=== PATIENT | female | born 1945 | race Caucasian/White ===

== ENCOUNTER 2018-01-28 00:54 | Inpatient (IN) | payer OTHER, MEDICARE ==
[~2018-01-28] VITALS: Ht 167.6 cm; Wt 80.2 kg
[2018-01-28 01:33] VITALS: BP 105/53; PULSE 61; RESP 15; TEMP 98.4; O2SAT 100
--- NOTE | 2018-01-28 01:39 | PD ---
HPI Chief Complaint: Psychiatric Symptoms Time Seen by Provider: 01:30 Travel History International Travel<30 days: No Contact w/Intl Traveler<30days: No Traveled to known affect area: No History of Present Illness HPI 72-year-old white female presents emergency department under a Hunt act by . She was seen at the emergency department in [place] and was medically cleared and sent here to be evaluated by the psychiatrist. The patient was given Geodon 20 mg IM. According to the Hunt act the patient has been acting bizarre. She has not been compliant with her antidepressants. According to the Hunt act she has had this behavior now for the last 2 weeks. Family members called police. The patient here denies any suicidal or homicidal ideation. She states that her unexpectedly 1 month ago. She does state that she has been taking her antidepressant on a daily basis. Patient does admit to feeling depressed. She does smoke marijuana on occasion. She denies any alcohol. PFSH Past Medical History Narrative Medical Anxiety, depression, left breast cancer with lumpectomy, insomnia, hysterectomy , questionable brain tumor Tetanus Vaccination: Unknown Past Surgical History Narrative Surgical Hysterectomy, left breast lumpectomy, Social History Alcohol Use: No Tobacco Use: Yes Substance Use: Yes (Marijuana) Allergies-Medications (Allergen,Severity, Reaction): Coded Allergies: No Known Allergies (Verified Allergy, Unknown, 01/28/18) Review of Systems General / Constitutional: No: Fever Eyes: No: Visual changes HENT: No: Headaches Cardiovascular: No: Chest Pain or Discomfort Respiratory: No: Shortness of Breath Gastrointestinal: No: Abdominal Pain Genitourinary: No: Dysuria Musculoskeletal: No: Pain Skin: No Rash Neurologic: No: Weakness Psychiatric: Positive: Anxiety, Depression, Mood Disorder, Substance Abuse, No : Suicidal Ideations, Disorder of Thought, Homicidal Ideation Endocrine: No: Polydipsia Hematologic/Lymphatic: No: Easy Bruising Physical Exam Narrative GENERAL: Well-nourished, well-developed patient. SKIN: Warm and dry. HEAD: Normocephalic and atraumatic. EYES: No scleral icterus. No injection or drainage. ENT: No nasal drainage noted. Mucous membranes pink. Airway patent. NECK: Supple, trachea midline. Moves head freely without obvious discomfort. CARDIOVASCULAR: Regular rate and rhythm without murmurs, gallops, or rubs. RESPIRATORY: Breath sounds equal bilaterally. No accessory muscle use. GASTROINTESTINAL: Abdomen soft, non-tender, nondistended. EXTREMITIES: No cyanosis or edema. BACK: Nontender without obvious deformity. No CVA tenderness. NEURO: Patient is alert and oriented. no sensorimotor deficits. Nonfocal. Normal speech. PSYCH: No delusions. No auditory or visual hallucinations. MDM Medical Decision Making Medical Screen Exam Complete: Yes Emergency Medical Condition: Yes Medical Record Reviewed: Yes Interpretation(s) Patient laboratory tests have been reviewed. Differential Diagnosis MDM: High Differential diagnoses: Schizophrenia, schizoaffective disorder, bipolar, anxiety, depression, adjustment reaction, mood disorder NOS, ODD, depressive disorder NOS, dementia, dementia with agitation, psychosis NOS, substance induced mood disorder, DMDD, Asperger syndrome, infection,electrolyte abnormality, malingering. Narrative Course Mental health screening discussed with the patient. Psychiatric screen ordered. I reviewed the patient's laboratory test. Patient is medically cleared. This is medical clearance for psychiatric admission Diagnosis Primary Impression: Medical clearance for psychiatric admission Condition: Stable [place] Jan 28, 2018 01:39
[2018-01-28] MEDS ORDERED: LEVO-86 PO (02:06)
[2018-01-28] MEDS ORDERED: ASPI-516 CHEW (02:06)
[2018-01-28] MEDS ORDERED: ZOLO100T PO (02:06)
[2018-01-28] MEDS ORDERED: LISI-590 PO (02:06)
[2018-01-28] MEDS ORDERED: LORA-474 PO (02:06)
[2018-01-28] MEDS ORDERED: LORazepam 2 MG/ML VIAL IM PRN ×2 (07:15)
[2018-01-28] MEDS ORDERED: LORazepam 0.5 MG TAB PO PRN (07:15)
[2018-01-28] MEDS ORDERED: ALUMINUM/MAGNESIUM/SIMETH 30 ML CUP PO PRN (07:15)
[2018-01-28] MEDS ORDERED: MAGNESIUM HYDROXIDE SUSP 30 ML CUP PO PRN (07:15)
[2018-01-28] MEDS ORDERED: LORazepam 1 MG TAB PO PRN (07:15)
[2018-01-28] MEDS ORDERED: ACETAMINOPHEN 325 MG TAB PO PRN (07:15)
[2018-01-28 07:39] VITALS: BP 176/72; PULSE 74; RESP 17; TEMP 98; O2SAT 99
[2018-01-28] MEDS: LEVOTHYROXINE SODIUM 25 MCG TAB PO SCH (08:00)
[2018-01-28] MEDS: LEVOTHYROXINE SODIUM 112 MCG TAB PO SCH (08:00)
[2018-01-28] MEDS: LISINOPRIL 10 MG TAB PO SCH (08:14)
[2018-01-28] MEDS: NICOTINE 21 MG/24 HR PATCH T-DERMAL SCH (08:14)
[2018-01-28] MEDS: ASPIRIN 81 MG CHEW TAB CHEW SCH (08:14)
[2018-01-28] MEDS: SERTRALINE HCL 100 MG TAB PO SCH (09:00)
[2018-01-28 15:26] VITALS: BP 135/61; PULSE 77; TEMP 98.3; O2SAT 99
[2018-01-29 05:19] VITALS: BP 178/77; PULSE 107; RESP 17; TEMP 98.3; O2SAT 98
[2018-01-29] MEDS: LEVOTHYROXINE SODIUM 25 MCG TAB PO SCH (06:00)
[2018-01-29] MEDS: LEVOTHYROXINE SODIUM 112 MCG TAB PO SCH (06:00)
[2018-01-29] MEDS: REMOVE OLD PATCH T-DERMAL SCH (09:00)
[2018-01-29] MEDS: SERTRALINE HCL 100 MG TAB PO SCH ×2 (09:00→09:54)
[2018-01-29] MEDS: NICOTINE 21 MG/24 HR PATCH T-DERMAL SCH (09:00)
[2018-01-29] MEDS: LISINOPRIL 10 MG TAB PO SCH (09:54)
[2018-01-29] MEDS: ASPIRIN 81 MG CHEW TAB CHEW SCH (09:54)
--- NOTE | 2018-01-29 16:35 | HHI.HP ---
Provisional Diagnosis Admission Date Jan 28, 2018 at 07:14 [place] I. Brief psychotic disorder F 23 Certification of Person's Competence To Provide Express and Informed Consent I have personally examined Deepika Kauffman , a person being served at [facility] on, Jan 29, 2018 16:26. Express and informed consent means consent voluntarily given in writing, by a competent person, after sufficient explanation and disclosure of the subject matter involved to enable the person to make a knowing and willful decision without any element of force, fraud, deceit, duress, or other form of constraint or coercion. This person is 18 years of age or older, is not now known to be incompetent to consent to treatment with a guardian advocate, and does not have a health care surrogate or proxy currently making medical treatment decisions. I have found this person to be one of the following: [] Competent to provide express and informed consent, as defined above, for voluntary admission to this facility and is competent to provide express and informed consent for treatment. He/she has the consistent capacity to make well reasoned, willful, and knowing decisions concerning his or her medical or mental health treatment. The person fully and consistently understands the purpose of the admission for examination/placement and is fully capable of personally exercising all rights assured [place] Incompetent to provide express and informed consent to voluntary admission, and this is incompetent to provide express and informed consent to treatment. The person must be transferred to involuntary status and a petition for a guardian advocate filed with the Circuit Court. []xxx Refusing to provide express and informed consent to voluntary admission but is competent to provide express and informed consent for treatment. The person must be discharged or transferred to involuntary status. Form shall be completed within 24 hours of a person's arrival at the receiving facility and filed in the clinical record of each person: 1. Admitted on a voluntary basis 2. Permitted to provide express and informed consent to his/her own treatment 3. Allowed to transfer from involuntary to voluntary status 4. Prior to permitting a person to consent to his or her own treatment after having been previously found incompetent to consent to treatment. History of Present Illness Capacity: Lacks Capacity (patient less capacity to sign for admission, patient has capacity to sign for medication) HPI Patient is a 72-year-old white female initially comes here under Hunt act by the seminal colleagues [employer] dated 01/27/19 at 2:45 PM that document reviewed stating very has been showing bizarre behaviors and has not been compliant with her medications. Family states she has been exhibiting such behaviors for approximately 2 weeks memory is evidently unable to determine whether examination is necessary. Patient initially seen at the [facility] urine toxicology positive for marijuana. CT of the head showed history of a craniotomy in cerebral atrophy. Patient behaviors such that she needed and ETO of Geodon 20 mg at that facility also. Patient medically cleared and then transferred here under the Hunt act. At the present time patient sitting in the day room nurse Key present throughout session. She is alert fairly well oriented angry irritable quite uncooperative white female. She is perseverative in her responses. She did acknowledge past psychiatric history but when questioned about hospitalizations she became angry and refused to answer. She did acknowledge her dying about a month ago but refused to answer anything else related to that or to her children over she is living. At this time patient does meet criteria for further psychiatric hospitalization under the Hunt act I'll do first opinion request second opinion. I feel she does have capacity to sign for medication. We will continue medication per the med reconciliation with the hospitalist consult will bus. We'll attempt to reach patient's family to get further information Review of Systems ROS Limitations: Altered Mental Status, Uncooperative Past Psych History Psychological trauma history Patient refuses to answer Violence risk - others (6 mos) Appears patient showing some bizarre behavior with her family possibly did. Care herself into her room Violence risk - self (6 mos) Moderate Substance Abuse History Drugs/Alcohol past 12 months Patient denies alcohol though frequent use of marijuana Past Family Social History Coded Allergies: No Known Allergies (Verified Allergy, Unknown, 01/28/18) Reported Medications Aspirin (Aspirin) 81 Mg Chew, 81 MG CHEW DAILY, TAB 0 Refills 01/28/18 Lisinopril (Zestril) 10 Mg Tab, 10 MG PO DAILY for Blood Pressure Management, # 30 TAB 0 Refills 01/28/18 Sertraline (Zoloft) 100 Mg Tab, 100 MG PO DAILY, #30 TAB 0 Refills 01/28/18 Levothyroxine (Synthroid) 137 Mcg Tab, 137 MCG PO DAILY for Thyroid, #30 TAB 0 Refills 01/28/18 Discontinued Reported Medications Lorazepam (Ativan) 1 Mg Tab, 1 MG PO BID Y for ANXIETY AND/OR AGITATION, TAB 0 Refills 01/28/18 Current Medications Medications (Trade) Dose Ordered Sig/Alphonso Route Start Time Stop Time Status Last Admin (Aspirin Chew) 81 mg DAILY CHEW 01/28/18 09:00 01/29/18 09:54 (Prinivil) 10 mg DAILY PO 01/28/18 09:00 01/29/18 09:54 (Ativan) 1 mg BID PRN PO 01/28/18 07:15 (Zoloft) 100 mg DAILY PO 01/28/18 09:00 01/29/18 09:00 (Synthroid) 112 mcg DAILY@0600 PO 01/28/18 08:00 01/28/18 08:00 (Ativan) 1 mg Q6H PRN PO 01/28/18 07:15 (Ativan Inj) 1 mg Q6H PRN IM 01/28/18 07:15 (Ativan) 0.5 mg Q12H PRN PO 01/28/18 07:15 (Ativan Inj) 0.5 mg Q12H PRN IM 01/28/18 07:15 (Tylenol) 650 mg Q4H PRN PO 01/28/18 07:15 (Milk Of Magnesia Liq) 30 ml DAILY PRN PO 01/28/18 07:15 (Mag-Al Plus Susp Liq) 30 ml Q6H PRN PO 01/28/18 07:15 (Habitrol 21 Mg Patch.24 Hr) 1 patch DAILY T-DERMAL 01/28/18 09:00 01/28/18 08:14 (Synthroid) 25 mcg DAILY@0600 PO 01/28/18 08:00 01/28/18 08:00 Miscellaneous Information 1 DAILY T-DERMAL 01/29/18 09:00 Family Psych History Patient states has seen a psychiatrist in the past refuses answer further psychiatric history questions Social History Patient recently Patient's Strengths (min. 2) Patient verbal irritable axis health care Physical Exam Patient medically cleared [facility] Vital Signs Vital Signs Date Time Temp Pulse Resp B/P (MAP) Pulse Ox O2 Delivery O2 Flow Rate FiO2 01/29/18 05:19 98.3 107 17 178/77 (110) 98 01/28/18 07:39 Room Air I/O 01/29/18 01/29/18 01/30/18 08:00 16:00 00:00 Intake Total 360 ml 360 ml Balance 360 ml 360 ml Mental Status Examination Appearance: Disheveled Consciousness: Alert Orientation: Person, Place, Date/Time Motor Activity: Normal gait Speech: Pressured, Rapid Language: Adequate Fund of Knowledge: Adequate Attention and Concentration: Other (fair) Memory: Impaired Mood: Angry, Oppositional, Irritable Affect: Other (increased range and intensity) Thought Process & Associations: Loose associations Thought Content: Bizarre thinking Hallucination Type: None (denies) Delusion Type: Bizarre Suicidal Ideation: No Suicidal Plan: No Suicidal Intention: No Homicidal Ideation: No Homicidal Plan: No Homicidal Intention: No Insight: Poor Judgment: Poor Assessment & Plan Problem List: (1) Brief psychotic disorder ICD Codes: F23 - Brief psychotic disorder Assessment & Plan Estimated LOS: 5-7 days at this time patient does meet criteria for involuntary psychiatric hospitalization I'll do first opinion request second opinion both feel she does have capacity at this time. Hospitalist consult will thus we'll order medication per the medication reconciliation. We'll attempt to reach patient's family to get further information Discharge Planning To be determined Jose Hidalgo MD Jan 29, 2018 16:35
[2018-01-29 18:21] VITALS: BP 157/70; PULSE 69; RESP 16; TEMP 97.6; O2SAT 100
[2018-01-30] MEDS: LEVOTHYROXINE SODIUM 112 MCG TAB PO SCH (05:52)
[2018-01-30] MEDS: LEVOTHYROXINE SODIUM 25 MCG TAB PO SCH (05:55)
[2018-01-30 06:13] VITALS: BP 168/77; PULSE 70; RESP 18; TEMP 98.5; O2SAT 96
[2018-01-30] MEDS: LISINOPRIL 10 MG TAB PO SCH (08:19)
[2018-01-30] MEDS: NICOTINE 21 MG/24 HR PATCH T-DERMAL SCH (08:36)
[2018-01-30] MEDS: SERTRALINE HCL 100 MG TAB PO SCH (08:36)
[2018-01-30] MEDS: ASPIRIN 81 MG CHEW TAB CHEW SCH (08:37)
[2018-01-30] MEDS: REMOVE OLD PATCH T-DERMAL SCH (08:38)
[2018-01-30] MEDS ORDERED: NICOTINE 21 MG/24 HR PATCH T-DERMAL SCH (09:00)
--- NOTE | 2018-01-30 12:55 | PD.PSY.CON ---
Provisional Diagnosis Admission Date Jan 28, 2018 at 07:14 [place] I. Brief psychotic disorder F 23 History of Present Illness Service Psychiatry Consult Requested By Psychiatry Reason for Consult Second opinion Primary Care Physician Unknown HPI Patient is a 72-year-old white female initially comes here under Hunt act by the seminal colleagues dated 01/27/19 at 2:45 PM that document reviewed stating very has been showing bizarre behaviors and has not been compliant with her medications. Family states she has been exhibiting such behaviors for approximately 2 weeks memory is evidently unable to determine whether examination is necessary. Patient initially seen at the [facility] urine toxicology positive for marijuana. CT of the head showed history of a craniotomy in cerebral atrophy. Patient behaviors such that she needed and ETO of Geodon 20 mg at that facility also. Patient medically cleared and then transferred here under the Hunt act. At the present time patient sitting in the day room nurse Key present throughout session. She is alert fairly well oriented angry irritable quite uncooperative white female. She is perseverative in her responses. She did acknowledge past psychiatric history but when questioned about hospitalizations she became angry and refused to answer. She did acknowledge her dying about a month ago but refused to answer anything else related to that or to her children over she is living. At this time patient does meet criteria for further psychiatric hospitalization under the Hunt act I'll do first opinion request second opinion. I feel she does have capacity to sign for medication. We will continue medication per the med reconciliation with the hospitalist consult will bus. We'll attempt to reach patient's family to get further information The patient is a 73 year-old woman, who lives in [place] with his son, , without no known previous psychiatric history, no previous psychiatric hospitalizations, no previous suicidal attempts, medical history hypertension, who was brought to the hospital on the Hunt at due to bizarre behavior and noncompliant with medications. Patient was consulted to me for second opinion. On the psychiatric evaluation today the patient seems to be very disorganized , with Vince loosening of associations, flight of ideas. Patient reports that she is here because her some months ago. Patient says that she would rather to be home right now. Patient doesn't seem to be insightful about circumstances that brought her to the hospital. She denies suicidal and homicidal ideation, she denies visual and auditory hallucinations. The patient is oriented 3. Past Family Social History Coded Allergies: No Known Allergies (Verified Allergy, Unknown, 01/28/18) Reported Medications Aspirin (Aspirin) 81 Mg Chew, 81 MG CHEW DAILY, TAB 0 Refills 01/28/18 Lisinopril (Zestril) 10 Mg Tab, 10 MG PO DAILY for Blood Pressure Management, # 30 TAB 0 Refills 01/28/18 Sertraline (Zoloft) 100 Mg Tab, 100 MG PO DAILY, #30 TAB 0 Refills 01/28/18 Levothyroxine (Synthroid) 137 Mcg Tab, 137 MCG PO DAILY for Thyroid, #30 TAB 0 Refills 01/28/18 Discontinued Reported Medications Lorazepam (Ativan) 1 Mg Tab, 1 MG PO BID Y for ANXIETY AND/OR AGITATION, TAB 0 Refills 01/28/18 Current Medications Medications (Trade) Dose Ordered Sig/Alphonso Route Start Time Stop Time Status Last Admin (Aspirin Chew) 81 mg DAILY CHEW 01/28/18 09:00 01/30/18 08:37 (Prinivil) 10 mg DAILY PO 01/28/18 09:00 01/30/18 08:19 (Ativan) 1 mg BID PRN PO 01/28/18 07:15 (Zoloft) 100 mg DAILY PO 01/28/18 09:00 01/30/18 08:36 (Synthroid) 112 mcg DAILY@0600 PO 01/28/18 08:00 01/30/18 05:52 (Ativan) 1 mg Q6H PRN PO 01/28/18 07:15 01/29/18 21:18 (Ativan Inj) 1 mg Q6H PRN IM 01/28/18 07:15 (Ativan) 0.5 mg Q12H PRN PO 01/28/18 07:15 (Ativan Inj) 0.5 mg Q12H PRN IM 01/28/18 07:15 (Tylenol) 650 mg Q4H PRN PO 01/28/18 07:15 (Milk Of Magnesia Liq) 30 ml DAILY PRN PO 01/28/18 07:15 (Mag-Al Plus Susp Liq) 30 ml Q6H PRN PO 01/28/18 07:15 (Habitrol 21 Mg Patch.24 Hr) 1 patch DAILY T-DERMAL 01/28/18 09:00 01/30/18 08:36 (Synthroid) 25 mcg DAILY@0600 PO 01/28/18 08:00 01/30/18 05:55 Miscellaneous Information 1 DAILY T-DERMAL 01/29/18 09:00 01/30/18 08:38 Patient's Strengths (min. 2) Patient verbal irritable axis health care Physical Exam Vital Signs Vital Signs Date Time Temp Pulse Resp B/P (MAP) Pulse Ox O2 Delivery O2 Flow Rate FiO2 01/30/18 06:13 98.5 70 18 168/77 (107) 96 01/28/18 07:39 Room Air Mental Status Examination Appearance: Disheveled Consciousness: Alert Orientation: Person, Place, Date/Time Motor Activity: Normal gait Speech: Pressured, Rapid Language: Adequate Fund of Knowledge: Adequate Attention and Concentration: Other (fair) Memory: Impaired Mood: Angry, Oppositional, Irritable Affect: Other (increased range and intensity) Thought Process & Associations: Loose associations Thought Content: Bizarre thinking Hallucination Type: None (denies) Delusion Type: Bizarre Suicidal Ideation: No Suicidal Plan: No Suicidal Intention: No Homicidal Ideation: No Homicidal Plan: No Homicidal Intention: No Insight: Poor Judgment: Poor Assessment & Plan Problem List: (1) Brief psychotic disorder ICD Codes: F23 - Brief psychotic disorder Assessment & Plan: I have seen and examined this patient, reviewed the documentation, I agree and concur with Dr. Hidalgo assessment and plan. Assessment & Plan Estimated LOS: Keven Grace MD Jan 30, 2018 12:55
[2018-01-30] MEDS ORDERED: risperiDONE 1 MG TAB PO SCH (13:00)
--- NOTE | 2018-01-30 13:04 | HHI.PYPN ---
Subjective Remarks Patient seen in day room with floor staff, discussed with nurse, chart reviewed. Somewhat paranoid and delusional, somewhat confused about the behaviors that led to this hospitalization. Minimizing them. Stating they should talk to her son Edinson who lives close by her in [place]. We will have counselor attempt to locate this gentleman. For now we'll add Respinol 1 mg twice a day to regimen Review of Systems Except as stated in HPI: all other systems reviewed are Neg Mental Status Examination Appearance: Disheveled Consciousness: Alert Orientation: Person, Place, Date/Time Motor Activity: Normal gait Speech: Pressured, Rapid Language: Adequate Fund of Knowledge: Adequate Attention and Concentration: Other (fair) Memory: Impaired Mood: Angry, Oppositional, Irritable Affect: Other (increased range and intensity) Thought Process & Associations: Loose associations Thought Content: Bizarre thinking Hallucination Type: None (denies) Delusion Type: Bizarre Suicidal Ideation: No Suicidal Plan: No Suicidal Intention: No Homicidal Ideation: No Homicidal Plan: No Homicidal Intention: No Insight: Poor Judgment: Poor Results Vitals/IOs Vital Signs Date Time Temp Pulse Resp B/P (MAP) Pulse Ox O2 Delivery O2 Flow Rate FiO2 01/30/18 06:13 98.5 70 18 168/77 (107) 96 01/28/18 07:39 Room Air Assessment & Plan Problem List: (1) Brief psychotic disorder ICD Codes: F23 - Brief psychotic disorder Assessment & Plan Estimated LOS: days patient continues psychotic delusional no insight. She medication adjustment of Justification for Cont. Inpt. At this time patient decompensated place to the lower level of care Discharge Planning Hopefully to return home to her family in Jose Crowley MD Jan 30, 2018 13:04
--- NOTE | 2018-01-30 14:19 | PD.CONS ---
HPI Service [facility] Hospitalists Consult Requested By Psychiatry Reason for Consult Medical management Primary Care Physician Unknown Diagnoses: History of Present Illness Ms. Kauffman is a 72-year-old female with a history of hypothyroidism, hypertension, depression who was admitted to the psychiatric unit under Hunt act due to bizarre behavior. She apparently was not taking her antidepressant medications. Hospitalist service was consulted for medical management. Patient was seen in the hallway. She refused to go to her room for this interview. The time of this interview, patient denies any chest pain, shortness of breath, fever or chills. She reports that she has some kind of kidney disease. She earlier refused to get blood work done. However after discussing with her the importance of blood work, she agrees to do blood work. Review of Systems Except as stated in HPI: all other systems reviewed are Neg Past Family Social History Allergies: Coded Allergies: No Known Allergies (Verified Allergy, Unknown, 01/28/18) Past Medical History Hypothyroidism, hypertension, depression Breast cancer, uterine cancer, brain tumor benign. Past Surgical History Left breast lumpectomy due to breast cancer, hysterectomy, brain tumor removal. Reported Medications Current Medications Medications (Trade) Dose Ordered Sig/Alphonso Route Start Time Stop Time Status Last Admin (Aspirin Chew) 81 mg DAILY CHEW 01/28/18 09:00 01/30/18 08:37 (Prinivil) 10 mg DAILY PO 01/28/18 09:00 01/30/18 08:19 (Ativan) 1 mg BID PRN PO 01/28/18 07:15 (Zoloft) 100 mg DAILY PO 01/28/18 09:00 01/30/18 08:36 (Synthroid) 112 mcg DAILY@0600 PO 01/28/18 08:00 01/30/18 05:52 (Ativan) 1 mg Q6H PRN PO 01/28/18 07:15 01/29/18 21:18 (Ativan Inj) 1 mg Q6H PRN IM 01/28/18 07:15 (Ativan) 0.5 mg Q12H PRN PO 01/28/18 07:15 (Ativan Inj) 0.5 mg Q12H PRN IM 01/28/18 07:15 (Tylenol) 650 mg Q4H PRN PO 01/28/18 07:15 (Milk Of Magnesia Liq) 30 ml DAILY PRN PO 01/28/18 07:15 (Mag-Al Plus Susp Liq) 30 ml Q6H PRN PO 01/28/18 07:15 (Habitrol 21 Mg Patch.24 Hr) 1 patch DAILY T-DERMAL 01/28/18 09:00 01/30/18 08:36 (Synthroid) 25 mcg DAILY@0600 PO 01/28/18 08:00 01/30/18 05:55 Miscellaneous Information 1 DAILY T-DERMAL 01/29/18 09:00 01/30/18 08:38 (risperDAL) 1 mg Q12HR PO 01/30/18 13:00 Future Hold Family History Mother had brain tumor. Father with heart disease, alcoholism. Social History Patient smokes about 1 pack a day. She does not want to quit smoking. She denies using alcohol or illicit drugs. Physical Exam Vital Signs Vital Signs Date Time Temp Pulse Resp B/P (MAP) Pulse Ox O2 Delivery O2 Flow Rate FiO2 01/30/18 06:13 98.5 70 18 168/77 (107) 96 01/29/18 18:21 97.6 69 16 157/70 (99) 100 Physical Exam GENERAL: This is a well-nourished, well-developed patient, in no apparent distress. SKIN: No rashes, ecchymoses or lesions. Warm and dry. HEAD: Atraumatic. Normocephalic. No temporal or scalp tenderness. EYES: Pupils equal round and reactive. No injection or drainage. ENT: Nose without bleeding, purulent drainage or septal hematoma. Airway patent. NECK: Trachea midline. No lymphadenopathy. Supple, nontender, no meningeal signs. CARDIOVASCULAR: Regular rate and rhythm without murmurs, gallops, or rubs. No JVD. RESPIRATORY: Clear to auscultation. Breath sounds equal bilaterally. No wheezes , rales, or rhonchi. GASTROINTESTINAL: Abdomen soft, non-tender, nondistended. No guarding. MUSCULOSKELETAL: Extremities without clubbing, cyanosis, or edema. NEUROLOGICAL: Awake and alert. Cranial nerves II through XII intact. No focal neurological deficits. Normal speech. Assessment and Plan Problem List: (1) Brief psychotic disorder ICD Code: F23 - Brief psychotic disorder (2) Hypothyroidism ICD Code: E03.9 - Hypothyroidism, unspecified (3) Hypertension ICD Code: I10 - Essential (primary) hypertension Assessment and Plan Ms. Kauffman is a pleasant 72-year-old female with a history of hypertension, hypothyroidism who was admitted under Hunt act due to bizarre behavior. Patient apparently was not taking her antidepressant medications. Hospitalist service was consulted for medical management. Patient earlier has refused to do blood work. However after talking to her, patient agrees to do blood work. -Brief psychotic disorder -Depression -Management per psychiatry. -Hypertension -Patient takes lisinopril 10 mg daily. She refused the medication yesterday. However today she took it. -We can continue lisinopril. However patient suggested that she chronic kidney disease. -Based on the labs, we may discontinue lisinopril and start calcium channel jeff. - Probable CKD per patient. -Will follow labs. If creatinine is elevated, we will d/c BRYAN inhibitor and start Calcium channel jeff. -Hypothyroidism -continue levothyroxine 137 mcg daily. -History of breast cancer -History of brain tumor benign -History of uterine cancer -No acute concerns. Outpatient follow-up. Later in the PM, labs were done. CKD with Creatinine 1.10. D/C lisinopril and start Amlodipine 5mg Qday. Titrate up and down as needed. Full code. Ambulation. Thank you for the consult. We will continue to follow this patient with you. Jade Honeycutt DO Jan 30, 2018 14:19
[2018-01-30] MEDS: risperiDONE 1 MG TAB PO SCH ×3 (15:00→21:13)
[2018-01-30 16:52] LABS: HEMOGLOBIN A1C 5.1 % (4.3-6.0)
[2018-01-30 16:54] LABS: BICARBONATE 26.5 MEQ/L (21.0-32.0); BLOOD UREA NITROGEN 23 MG/DL (7-18); CALCIUM 9.1 MG/DL (8.5-10.1); CHLORIDE 106 MEQ/L (98-107); CHOLESTEROL 198 MG/DL (120-200); GLOMERULAR FILTRATION RATE 49 ML/MIN (>89); GLUCOSE,RANDOM 105 MG/DL (74-106); SODIUM (NA) 139 MEQ/L (136-145); TRIGLYCERIDES 160 MG/DL (42-150)
[2018-01-30 16:56] LABS: CHOLESTEROL/ HDL RATIO 3.37 RATIO; HDL CHOLESTEROL 58.6 MG/DL (40.0-60.0); LDL CHOLESTEROL 107 MG/DL (0-99)
[2018-01-30 17:22] VITALS: BP 117/58; PULSE 66; RESP 18; TEMP 98.7; O2SAT 99
[2018-01-30] MEDS: LORazepam 1 MG TAB PO PRN (21:34)
[2018-01-31] MEDS: LEVOTHYROXINE SODIUM 25 MCG TAB PO SCH (05:40)
[2018-01-31] MEDS: LEVOTHYROXINE SODIUM 112 MCG TAB PO SCH (05:40)
[2018-01-31 05:49] VITALS: BP 149/56; PULSE 68; RESP 18; TEMP 97.8; O2SAT 99
[2018-01-31 06:00] VITALS: BP 149/65; PULSE 68; RESP 18; TEMP 97.8; O2SAT 99
[2018-01-31 08:25] VITALS: BP 181/76
[2018-01-31] MEDS: NICOTINE 21 MG/24 HR PATCH T-DERMAL SCH (08:26)
[2018-01-31] MEDS: SERTRALINE HCL 100 MG TAB PO SCH (08:29)
[2018-01-31] MEDS: ASPIRIN 81 MG CHEW TAB CHEW SCH (08:29)
[2018-01-31] MEDS: risperiDONE 1 MG TAB PO SCH ×2 (08:29→21:00)
[2018-01-31] MEDS: amLODIPine BESYLATE 5 MG TAB PO SCH (08:29)
[2018-01-31] MEDS: REMOVE OLD PATCH T-DERMAL SCH (08:31)
--- NOTE | 2018-01-31 12:07 | HHI.PYPN ---
Subjective Remarks Patient seen in day room with nurse Mary, patient calm cooperative we did discuss medications she really wants to remain on her Zoloft and Ativan, which is appropriate. We did discuss the need for medication to address her psychotic features. Patient is reluctantly willing to continue on at bedtime medicines. We will discontinue the scheduled Respinol. And start Respinol 2 mg at at bedtime Review of Systems Except as stated in HPI: all other systems reviewed are Neg Mental Status Examination Appearance: Disheveled Consciousness: Alert Orientation: Person, Place, Date/Time Motor Activity: Normal gait Speech: Pressured, Rapid Language: Adequate Fund of Knowledge: Adequate Attention and Concentration: Other (fair) Memory: Impaired Mood: Angry, Oppositional, Irritable Affect: Other (increased range and intensity) Thought Process & Associations: Loose associations Thought Content: Bizarre thinking Hallucination Type: None (denies) Delusion Type: Bizarre Suicidal Ideation: No Suicidal Plan: No Suicidal Intention: No Homicidal Ideation: No Homicidal Plan: No Homicidal Intention: No Insight: Poor Judgment: Poor Results Labs Test 01/30/18 16:22 Blood Urea Nitrogen 23 MG/DL Creatinine 1.10 MG/DL Random Glucose 105 MG/DL Calcium Level 9.1 MG/DL Sodium Level 139 MEQ/L Potassium Level 4.2 MEQ/L Chloride Level 106 MEQ/L Carbon Dioxide Level 26.5 MEQ/L Anion Gap 7 MEQ/L Estimat Glomerular Filtration Rate 49 ML/MIN Hemoglobin A1c 5.1 % Triglycerides Level 160 MG/DL Cholesterol Level 198 MG/DL LDL Cholesterol 107 MG/DL HDL Cholesterol 58.6 MG/DL Cholesterol/HDL Ratio 3.37 RATIO Vitals/IOs Vital Signs Date Time Temp Pulse Resp B/P (MAP) Pulse Ox O2 Delivery O2 Flow Rate FiO2 01/31/18 08:25 181/76 (111) 01/31/18 06:00 97.8 68 18 99 01/28/18 07:39 Room Air Intake and Output 01/31/18 01/31/18 02/01/18 08:00 16:00 00:00 Intake Total 240 ml Balance 240 ml Assessment & Plan Problem List: (1) Brief psychotic disorder ICD Codes: F23 - Brief psychotic disorder Assessment & Plan Estimated LOS: days patient psychosis is softening this and some paranoia vigilance and guardedness. We will to discuss and agreed upon the addition of Respinol 2 mg at bedtime. Patient denies suicidality denies voices or visions Justification for Cont. Inpt. At this time patient will decompensate of placed a lower level of care Discharge Planning Probable return home with family Jose Hidalgo MD Jan 31, 2018 12:06
[2018-01-31] MEDS ORDERED: cloNIDine HCL 0.1 MG TAB PO PRN (13:15)
--- NOTE | 2018-01-31 15:27 | PD.TTN ---
Patient Problems 1. Discharge planning 2. Medication compliance 3. Knowledge deficit 4. Lack of coping skills Progress Toward Goals Provider Present: Dr. Stoney Hidalgo Provider Input: 01/31/18 Still meets criteria to be here but will discuss voluntary stay today Psychiatric Counselors Present: Sienna Hernández LCSW Psych Therapist Input: 01/31/18 patient is still somewhat suspicious but is more open to make eye contact and out on the unit , she can be very intrusive and demanding - history of non compliance and not very open to take medications Group Spec/RT/OT/PRICE Present: DEE Potts Group Spec/RT/OT/PRICE Input: 01/31/18 refuses to attend groups Sienna Hernández LCSW Jan 31, 2018 15:27
--- NOTE | 2018-01-31 16:27 | HHI.PR ---
Subjective Remarks Follow-up on patient with hypertension, hypothyroidism, CKD. Patient seen and examined. Patient states she feels tired after a long day. She denies any acute medical complaints. Denies any fever or chills. She denies any chest pain or shortness of breath. No nausea, vomiting or abdominal pain. Discussed repeating her BMP in next day or two to re-evaluate kidney function and patient states "we'll see". Objective Vitals Vital Signs Date Time Temp Pulse Resp B/P (MAP) Pulse Ox O2 Delivery O2 Flow Rate FiO2 01/31/18 08:25 181/76 (111) 01/31/18 06:00 97.8 68 18 149/65 (93) 99 01/31/18 05:49 97.8 68 18 149/56 (87) 99 01/30/18 17:22 98.7 66 18 117/58 (77) 99 I/O 01/30/18 01/30/18 01/30/18 01/31/18 01/31/18 01/31/18 07:00 15:00 23:00 07:00 15:00 23:00 Intake Total 960 ml 1200 ml Balance 960 ml 1200 ml Intake Oral 960 ml 1200 ml # Voids 2 3 2 Result Diagram: 01/30/18 1622 Objective Remarks GENERAL: This is a well-nourished, well-developed elderly female patient, in no apparent distress. Awake and alert. Sitting in dayroom. SKIN: Warm and dry. HEAD: Atraumatic. Normocephalic. EYES: EOMI. No injection or drainage. ENT: Nose without bleeding or purulent drainage. Airway patent. MMM. NECK: Trachea midline. CARDIOVASCULAR: Regular rate and rhythm without murmurs, gallops, or rubs. No JVD. RESPIRATORY: Clear to auscultation. Breath sounds equal bilaterally. No wheezes , rales, or rhonchi. GASTROINTESTINAL: Abdomen soft, non-tender, nondistended. No guarding. MUSCULOSKELETAL: Extremities without clubbing or cyanosis. Trace bilateral LE edema. NEUROLOGICAL: Awake and alert. Cranial nerves II through XII grossly intact. No focal neurological deficits. Normal speech. Medications and IVs Current Medications Medications (Trade) Dose Ordered Sig/Alphonso Route Start Time Stop Time Status Last Admin (Aspirin Chew) 81 mg DAILY CHEW 01/28/18 09:00 01/31/18 08:29 (Ativan) 1 mg BID PRN PO 01/28/18 07:15 01/30/18 21:34 (Zoloft) 100 mg DAILY PO 01/28/18 09:00 01/31/18 08:29 (Synthroid) 112 mcg DAILY@0600 PO 01/28/18 08:00 01/31/18 05:40 (Ativan) 1 mg Q6H PRN PO 01/28/18 07:15 01/29/18 21:18 (Ativan Inj) 1 mg Q6H PRN IM 01/28/18 07:15 (Ativan) 0.5 mg Q12H PRN PO 01/28/18 07:15 (Ativan Inj) 0.5 mg Q12H PRN IM 01/28/18 07:15 (Tylenol) 650 mg Q4H PRN PO 01/28/18 07:15 (Milk Of Magnesia Liq) 30 ml DAILY PRN PO 01/28/18 07:15 (Mag-Al Plus Susp Liq) 30 ml Q6H PRN PO 01/28/18 07:15 (Habitrol 21 Mg Patch.24 Hr) 1 patch DAILY T-DERMAL 01/28/18 09:00 01/31/18 08:26 (Synthroid) 25 mcg DAILY@0600 PO 01/28/18 08:00 01/31/18 05:40 Miscellaneous Information 1 DAILY T-DERMAL 01/29/18 09:00 01/31/18 08:31 (Norvasc) 5 mg DAILY PO 01/31/18 09:00 01/31/18 08:29 (Lipitor) 20 mg HS PO 01/31/18 21:00 (risperDAL) 2 mg HS PO 01/31/18 21:00 (Catapres) 0.1 mg Q6H PRN PO 01/31/18 13:15 A/P Problem List: (1) Brief psychotic disorder ICD Code: F23 - Brief psychotic disorder (2) Hypothyroidism ICD Code: E03.9 - Hypothyroidism, unspecified (3) Hypertension ICD Code: I10 - Essential (primary) hypertension Assessment and Plan Ms. Kauffman is a pleasant 72-year-old female with a history of hypertension, hypothyroidism who was admitted under Hunt act due to bizarre behavior. Patient apparently was not taking her antidepressant medications. Hospitalist service was consulted for medical management. Patient earlier has refused to do blood work. However after talking to her, patient agrees to do blood work. -Brief psychotic disorder -Depression -Management per psychiatry. -Hypertension -Patient takes lisinopril 10 mg daily at home. Discontinued secondary to suspected CKD. -Started on Norvasc 5mg daily this morning. Continue. May need to titrate dose up depending on response. -Clonidine prn with parameters -continue to monitor BP and adjust treatment accordingly -Probable CKD per patient. -creatinine 1.10, GFR 49, unknown baseline. No previous labs in system -Avoid nephrotoxic agents -monitor renal indices as indicated -Hypothyroidism -TSH 25.500 -Suspect elevated TSH secondary to medication noncompliance. Will not adjust at this time. Recommend repeat TSH in 4-6 weeks with PCP as outpatient. -continue levothyroxine 137 mcg daily. -History of breast cancer -History of brain tumor benign -History of uterine cancer -No acute concerns. Outpatient follow-up. Magali Castle Jan 31, 2018 16:27
[2018-01-31 17:29] VITALS: BP 193/74; PULSE 79; RESP 18; TEMP 98.1; O2SAT 100
[2018-01-31 17:53] VITALS: BP 193/74
[2018-01-31] MEDS: LORazepam 1 MG TAB PO PRN (20:13)
[2018-01-31] MEDS: ATORVASTATIN 20 MG TAB PO SCH (21:00)
[2018-02-01 05:32] VITALS: BP 139/87; PULSE 93; RESP 18; TEMP 97.7; O2SAT 100
[2018-02-01] MEDS: LEVOTHYROXINE SODIUM 25 MCG TAB PO SCH (05:58)
[2018-02-01] MEDS: LEVOTHYROXINE SODIUM 112 MCG TAB PO SCH (05:58)
[2018-02-01] MEDS: LORazepam 1 MG TAB PO PRN ×2 (05:59→22:22)
[2018-02-01 07:05] LABS: BICARBONATE 25.4 MEQ/L (21.0-32.0); CALCIUM 9.7 MG/DL (8.5-10.1); CREATININE 1.15 MG/DL (0.50-1.00)
[2018-02-01] MEDS: SERTRALINE HCL 100 MG TAB PO SCH (08:57)
[2018-02-01] MEDS: amLODIPine BESYLATE 5 MG TAB PO SCH (08:57)
[2018-02-01] MEDS: ASPIRIN 81 MG CHEW TAB CHEW SCH (08:57)
[2018-02-01] MEDS: NICOTINE 21 MG/24 HR PATCH T-DERMAL SCH (09:00)
[2018-02-01] MEDS: REMOVE OLD PATCH T-DERMAL SCH (09:00)
[2018-02-01 09:08] VITALS: BP 139/87; PULSE 132; RESP 18; TEMP 97.7; O2SAT 100
--- NOTE | 2018-02-01 12:50 | HHI.PYPN ---
Subjective Remarks Patient seen in [facility] with nurse Pancho, chart review, patient showing mixed compliance with medication. Patient discussed with nurse. Explain purpose of Respinol being given at at bedtime. Patient seems to show some processing and understanding of it. The patient compliant with medication tonight makes a commitment to continuation of the medications no patient with mental health follow-up will consider discharge tomorrow Review of Systems Except as stated in HPI: all other systems reviewed are Neg Mental Status Examination Appearance: Disheveled Consciousness: Alert Orientation: Person, Place, Date/Time Motor Activity: Normal gait Speech: Pressured, Rapid Language: Adequate Fund of Knowledge: Adequate Attention and Concentration: Other (fair) Memory: Impaired Mood: Angry, Oppositional, Irritable Affect: Other (increased range and intensity) Thought Process & Associations: Loose associations Thought Content: Bizarre thinking Hallucination Type: None (denies) Delusion Type: Bizarre Suicidal Ideation: No Suicidal Plan: No Suicidal Intention: No Homicidal Ideation: No Homicidal Plan: No Homicidal Intention: No Insight: Poor Judgment: Poor Results Labs Test 02/01/18 05:55 Blood Urea Nitrogen 24 MG/DL Creatinine 1.15 MG/DL Random Glucose 121 MG/DL Calcium Level 9.7 MG/DL Sodium Level 138 MEQ/L Potassium Level 3.7 MEQ/L Chloride Level 104 MEQ/L Carbon Dioxide Level 25.4 MEQ/L Anion Gap 9 MEQ/L Estimat Glomerular Filtration Rate 46 ML/MIN Vitals/IOs Vital Signs Date Time Temp Pulse Resp B/P (MAP) Pulse Ox O2 Delivery O2 Flow Rate FiO2 02/01/18 09:08 97.7 132 18 139/87 (104) 100 01/28/18 07:39 Room Air Intake and Output 02/01/18 02/01/18 02/02/18 08:00 16:00 00:00 Intake Total 720 ml 360 ml Balance 720 ml 360 ml Assessment & Plan Problem List: (1) Brief psychotic disorder ICD Codes: F23 - Brief psychotic disorder Assessment & Plan Estimated LOS: days patient vigilance and paranoia have markedly decreased, she is more compliant and cooperative. Will observe compliance with medication over next 24 hours Justification for Cont. Inpt. At this time patient decompensated placed in a lower level of care Discharge Planning Return home Jose Hidalgo MD Feb 01, 2018 12:50
[2018-02-01 17:48] VITALS: BP 154/66; PULSE 71; RESP 16; TEMP 98.6; O2SAT 100
[2018-02-01] MEDS: ATORVASTATIN 20 MG TAB PO SCH (20:14)
[2018-02-01] MEDS: risperiDONE 1 MG TAB PO SCH (20:14)
[2018-02-02] MEDS: LEVOTHYROXINE SODIUM 25 MCG TAB PO SCH (06:23)
[2018-02-02] MEDS: LEVOTHYROXINE SODIUM 112 MCG TAB PO SCH (06:23)
[2018-02-02 07:15] VITALS: BP 156/76; PULSE 71; RESP 15; TEMP 98; O2SAT 98
[2018-02-02] MEDS: amLODIPine BESYLATE 5 MG TAB PO SCH (08:19)
[2018-02-02] MEDS: REMOVE OLD PATCH T-DERMAL SCH (08:20)
[2018-02-02] MEDS: NICOTINE 21 MG/24 HR PATCH T-DERMAL SCH (08:20)
[2018-02-02] MEDS: ASPIRIN 81 MG CHEW TAB CHEW SCH (08:20)
[2018-02-02] MEDS: SERTRALINE HCL 100 MG TAB PO SCH (08:20)
[2018-02-02] MEDS ORDERED: LORA-474 PO (11:30)
[2018-02-02] MEDS ORDERED: RISP2TAB37 PO (11:30)
[2018-02-02] MEDS ORDERED: AMLO5 PO (11:30)
[2018-02-02] MEDS ORDERED: ATOR20TA15 PO (11:30)
[2018-02-02] MEDS ORDERED: ZOLO100T PO (11:30)
[2018-02-02] MEDS ORDERED: LEVO25TA4 PO (11:30)
[2018-02-02] MEDS ORDERED: ASPI-516 CHEW (11:30)
--- NOTE | 2018-02-02 11:36 | HHI.DS ---
Psychiatry Discharge Summary Inpatient Psychiatric care?: Yes Advance Directive: No Reason Not Provided: Due to Patient Condition Mental Health AdvanceDirective: No Health Care Proxy: No Admission Admission Date Jan 28, 2018 at 07:14 Admission Diagnosis: (1) Brief psychotic disorder ICD Code: F23 - Brief psychotic disorder Brief History Patient is a 72-year-old white female initially comes here under Hunt act by the seminal colleagues dated 01/27/19 at 2:45 PM that document reviewed stating very has been showing bizarre behaviors and has not been compliant with her medications. Family states she has been exhibiting such behaviors for approximately 2 weeks memory is evidently unable to determine whether examination is necessary. Patient initially seen at the [facility] urine toxicology positive for marijuana. CT of the head showed history of a craniotomy in cerebral atrophy. Patient behaviors such that she needed and ETO of Geodon 20 mg at that facility also. Patient medically cleared and then transferred here under the Hunt act. At the present time patient sitting in the day room nurse Key present throughout session. She is alert fairly well oriented angry irritable quite uncooperative white female. She is perseverative in her responses. She did acknowledge past psychiatric history but when questioned about hospitalizations she became angry and refused to answer. She did acknowledge her dying about a month ago but refused to answer anything else related to that or to her children over she is living. At this time patient does meet criteria for further psychiatric hospitalization under the Hunt act I'll do first opinion request second opinion. I feel she does have capacity to sign for medication. We will continue medication per the med reconciliation with the hospitalist consult will bus. We'll attempt to reach patient's family to get further information The patient is a 73 year-old woman, who lives in [place] with his son, , without no known previous psychiatric history, no previous psychiatric hospitalizations, no previous suicidal attempts, medical history hypertension, who was brought to the hospital on the Hunt at due to bizarre behavior and noncompliant with medications. Patient was consulted to me for second opinion. On the psychiatric evaluation today the patient seems to be very disorganized , with Vince loosening of associations, flight of ideas. Patient reports that she is here because her some months ago. Patient says that she would rather to be home right now. Patient doesn't seem to be insightful about circumstances that brought her to the hospital. She denies suicidal and homicidal ideation, she denies visual and auditory hallucinations. The patient is oriented 3. Tobacco Use In Past 30 Days: No Tobacco Past 30 Days Alcohol Use: Never Hospital Course Patient hospital course was uneventful, she was no behavior problems, was cooperative with the staff. Socializing with other patients. She showed resistance to psychotropic medications. The is able to process this with her with her willingness then to take and bedtime dose of Respinol. Patient took medication last night. Today patient denies suicidality homicidality voices or visions. There is still a suspiciousness and vigilant. However feel at this time she has reached maximum benefit of this hospitalization. She still feels the need for small dose of Ativan at at bedtime since this is been her regimen for a number of years. She is also willing to take the Respinol at bedtime. Thus patient will be discharged today with 1 month supply a regular schedule medications though with only 10 Ativan and 10 Respinol. Patient to be referred to us by her mental health follow-up next week. Patient willing to do this but she'll be discharged today to her family Results Blood Pressure 156 / 76 Vital Signs Date Time Temp Pulse Resp B/P (MAP) Pulse Ox O2 Delivery O2 Flow Rate FiO2 02/02/18 07:15 98.0 71 15 156/76 (102) 98 Laboratory Tests Test 01/30/18 16:22 02/01/18 05:55 Blood Urea Nitrogen 23 MG/DL (7-18) 24 MG/DL (7-18) Creatinine 1.10 MG/DL (0.50-1.00) 1.15 MG/DL (0.50-1.00) Estimat Glomerular Filtration Rate 49 ML/MIN (>89) 46 ML/MIN (>89) Triglycerides Level 160 MG/DL (42-150) LDL Cholesterol 107 MG/DL (0-99) Thyroid Stimulating Hormone 3rd Gen 25.500 uIU/ML (0.358-3.740) Random Glucose 121 MG/DL (74-106) Laboratory Results Test 01/30/18 16:22 Cholesterol Level 198 MG/DL (120-200) HDL Cholesterol 58.6 MG/DL (40.0-60.0) Hemoglobin A1c 5.1 % (4.3-6.0) LDL Cholesterol 107 MG/DL (0-99) Triglycerides Level 160 MG/DL (42-150) Summary of Procedures None done Pending results at discharge: No Medications # of Antipsychotic meds at D/C: 1 Approp Antipsych med options 1 - Minimum of three failed multiple trials of monotherapy. 2 - Documented plan to taper to monotherapy due to previous use of multiple meds OR cross-taper in progress at D/C. 3 - Documentation of augmentation of Clozapine. 4 - Justification other than those listed in allowable values 1-3, document here : Discharge Discharge Date: Feb 02, 2018 Discharge Diagnosis: (1) Brief psychotic disorder Diagnosis: Principal ICD Code: F23 - Brief psychotic disorder Pt Condition on Discharge: Stable Discharge Disposition: Discharge Home Discharge Instructions Diet Instructions: As Tolerated, No Restrictions Activities you can perform: Regular-No Restrictions Scheduled Appointment: Discharge Time > 30 minutes Mental Status Examination Appearance: Disheveled Consciousness: Alert Orientation: Person, Place, Date/Time Motor Activity: Normal gait Speech: Pressured, Rapid Language: Adequate Fund of Knowledge: Adequate Attention and Concentration: Other (fair) Memory: Impaired Mood: Angry, Oppositional, Irritable Affect: Other (increased range and intensity) Thought Process & Associations: Loose associations Thought Content: Bizarre thinking Hallucination Type: None (denies) Delusion Type: Bizarre Suicidal Ideation: No Suicidal Plan: No Suicidal Intention: No Homicidal Ideation: No Homicidal Plan: No Homicidal Intention: No Insight: Poor Judgment: Poor Discharge/Advance Care Plan Health Problems: (1) Brief psychotic disorder Goals to promote your health * To prevent worsening of your condition and complications * To maintain your health at the optimal level Directions to meet your goals Take your medications as prescribed Follow your dietary instruction Follow activity as directed Keep your appointments as scheduled Take your immunizations and boosters as scheduled If your symptoms worsen call your PCP, if no PCP go to Urgent Care Center or Emergency Room For 19/06 questions related to your inpatient stay or results of tests pending at discharge, please contact Dr. Jose Hidalgo at Smoking is Dangerous to Your Health. Avoid second hand smoking Jose Hidalgo MD Feb 02, 2018 11:36
--- NOTE | 2018-02-02 11:38 | HHI.PR ---
Subjective Remarks Follow-up on patient with hypertension, hypothyroidism, CKD. Patient seen and examined. Patient reports she is doing well. She denies any new medical complaints. Discussed with nursing staff, no acute issues noted. VSS. Afebrile. Objective Vitals Vital Signs Date Time Temp Pulse Resp B/P (MAP) Pulse Ox O2 Delivery O2 Flow Rate FiO2 02/02/18 07:15 98.0 71 15 156/76 (102) 98 02/01/18 17:48 98.6 71 16 154/66 (95) 100 I/O 02/01/18 02/01/18 02/01/18 02/02/18 02/02/18 02/02/18 07:00 15:00 23:00 07:00 15:00 23:00 Intake Total 720 ml 1320 ml 960 ml Balance 720 ml 1320 ml 960 ml Intake Oral 720 ml 1320 ml 960 ml # Voids 2 1 3 Result Diagram: 02/01/18 0555 Objective Remarks GENERAL: This is a well-nourished, well-developed elderly female patient, in no apparent distress. Awake and alert. Ambulating in the dayroom. SKIN: Warm and dry. HEAD: Atraumatic. Normocephalic. EYES: EOMI. No injection or drainage. ENT: Nose without bleeding or purulent drainage. Airway patent. MMM. NECK: Trachea midline. CARDIOVASCULAR: Regular rate and rhythm without murmurs, gallops, or rubs. No JVD. RESPIRATORY: Clear to auscultation. Breath sounds equal bilaterally. No wheezes , rales, or rhonchi. GASTROINTESTINAL: Abdomen soft, non-tender, nondistended. No guarding. MUSCULOSKELETAL: Extremities without clubbing or cyanosis. Trace bilateral LE edema. NEUROLOGICAL: Awake and alert. Cranial nerves II through XII grossly intact. No focal neurological deficits. Normal speech. Medications and IVs Current Medications Medications (Trade) Dose Ordered Sig/Alphonso Route Start Time Stop Time Status Last Admin (Aspirin Chew) 81 mg DAILY CHEW 01/28/18 09:00 02/02/18 08:20 (Ativan) 1 mg BID PRN PO 01/28/18 07:15 02/01/18 22:22 (Zoloft) 100 mg DAILY PO 01/28/18 09:00 02/02/18 08:20 (Synthroid) 112 mcg DAILY@0600 PO 01/28/18 08:00 02/02/18 06:23 (Ativan) 1 mg Q6H PRN PO 01/28/18 07:15 01/29/18 21:18 (Ativan Inj) 1 mg Q6H PRN IM 01/28/18 07:15 (Ativan) 0.5 mg Q12H PRN PO 01/28/18 07:15 (Ativan Inj) 0.5 mg Q12H PRN IM 01/28/18 07:15 (Tylenol) 650 mg Q4H PRN PO 01/28/18 07:15 02/01/18 22:22 (Milk Of Magnesia Liq) 30 ml DAILY PRN PO 01/28/18 07:15 (Mag-Al Plus Susp Liq) 30 ml Q6H PRN PO 01/28/18 07:15 (Habitrol 21 Mg Patch.24 Hr) 1 patch DAILY T-DERMAL 01/28/18 09:00 01/31/18 08:26 (Synthroid) 25 mcg DAILY@0600 PO 01/28/18 08:00 02/02/18 06:23 Miscellaneous Information 1 DAILY T-DERMAL 01/29/18 09:00 01/31/18 08:31 (Lipitor) 20 mg HS PO 01/31/18 21:00 02/01/18 20:14 (risperDAL) 2 mg HS PO 01/31/18 21:00 02/01/18 20:14 (Catapres) 0.1 mg Q6H PRN PO 01/31/18 13:15 01/31/18 17:54 (Norvasc) 5 mg BID PO 02/02/18 21:00 A/P Problem List: (1) Brief psychotic disorder ICD Code: F23 - Brief psychotic disorder (2) Hypothyroidism ICD Code: E03.9 - Hypothyroidism, unspecified (3) Hypertension ICD Code: I10 - Essential (primary) hypertension Assessment and Plan Ms. Kauffman is a pleasant 72-year-old female with a history of hypertension, hypothyroidism who was admitted under [facility] act due to bizarre behavior. Patient apparently was not taking her antidepressant medications. Hospitalist service was consulted for medical management. Patient earlier has refused to do blood work. However after talking to her, patient agrees to do blood work. -Brief psychotic disorder -Depression -Management per psychiatry. -Hypertension -Patient takes lisinopril 10 mg daily at home. Discontinued secondary to suspected CKD. -Started on Norvasc 5mg daily. Still with high BPs. Increase to 5mg BID. -Clonidine prn with parameters -continue to monitor BP and adjust treatment accordingly -Probable CKD per patient. -creatinine 1.10, GFR 49, unknown baseline. No previous labs in system -renal US pending -Avoid nephrotoxic agents -monitor renal indices as indicated -Hypothyroidism -TSH 25.500 -Suspect elevated TSH secondary to medication noncompliance. Will not adjust at this time. Recommend repeat TSH in 4-6 weeks with PCP as outpatient. -continue levothyroxine 137 mcg daily. -History of breast cancer -History of brain tumor benign -History of uterine cancer -No acute concerns. Outpatient follow-up. DVT prophylaxis -patient is ambulatory Magali [place] Feb 02, 2018 11:38
--- NOTE | 2018-02-02 11:59 | RADRPT ---
EXAM DATE/TIME: 02/02/2018 10:08 [facility] COMPARISON: No previous studies available for comparison. INDICATIONS : Increased BUN/Creatinine. MEDICAL HISTORY : Hypertension. Gastroesophageal reflux disease. Hypothyroidism. Depression. Anxiety. Breast cancer. Ut erine cancer. Brain tumor. SURGICAL HISTORY : Hysterectomy. Left breast lumpectomy. Brain tumor removal. ENCOUNTER: Initial ACUITY: 1 day PAIN SCORE: 0/10 LOCATION: Bilateral flank MEASUREMENTS: RIGHT KIDNEY: 8.0 x 3.4 x 5.2 cm LEFT KIDNEY: 12.3 x 6.5 x 6.2 cm FINDINGS: RIGHT KIDNEY: Right kidney is smaller than the left the minimal cortical echogenicity. No stone or mass. LEFT KIDNEY: Renal cortex is normal in thickness and echotexture. No hydronephrosis, stone, or mass. BLADDER: Within normal limits given the degree of distension. CONCLUSION: Small some echogenic right kidney otherwise negative. Nigel Farr MD FACR on February 02, 2018 at 11:55 Board Certified Radiologist. This report was verified electronically.
[2018-02-02] MEDS ORDERED: amLODIPine BESYLATE 5 MG TAB PO SCH (21:00)
== END 2018-02-02 13:55 | disposition home or self-care (01) | DRG 885 ==
LOC: NEPD 00:54 → NEDA 07:14 → H250 09:15
PROVIDERS: ADMIT Psychiatry & Neurology Psychiatry; ATTEND Psychiatry & Neurology Psychiatry
DX: F23 Brief psychotic disorder (principal); Z91.14 Patient's other noncompliance with medication regimen; I12.9 Hypertensive chronic kidney disease with stage 1 through stage 4 chronic kidney disease, or unspecified chronic kidney disease; E03.9 Hypothyroidism, unspecified; F41.9 Anxiety disorder, unspecified; F12.90 Cannabis use, unspecified, uncomplicated; G47.00 Insomnia, unspecified; N18.9 Chronic kidney disease, unspecified; F17.210 Nicotine dependence, cigarettes, uncomplicated; F32.9 Major depressive disorder, single episode, unspecified; Z85.3 Personal history of malignant neoplasm of breast; Z85.42 Personal history of malignant neoplasm of other parts of uterus; Z86.011 Personal history of benign neoplasm of the brain
CPT/HCPCS: 76775; 80048; 80061; 83036; 84443; 99285